=== PATIENT | female | born 1940 | race Caucasian/White ===

== ENCOUNTER 2016-11-11 16:23 | Inpatient (IN) | payer MEDICARE, OTHER ==
--- NOTE | 2016-11-11 17:24 | PHYS DOC ---
Past History Past Medical History: Migraines, Seizure Past Surgical History: No Surgical History Alcohol Use: Occasionally Additional Alcohol Information: Pt states she has a nightly gin and tonic Drug Use: None Adult General Chief Complaint Chief Complaint: SEIZURE HPI HPI Impression is a pleasant 76-year-old female with a history of seizures that are described as tonic-clonic occur once every 12-18 months. She's been seen extensively by a neurologist in the past although she is not on any medication to prevent her from having a seizure today after getting her current and a sitting position she developed a prodrome of seizure is coming on she sat down she began to have a generalized tonic-clonic seizure. It was witnessed by family who are at the bedside to explain her history. This is just seizure lasted approximately 60 seconds patient was very confused. She did not have any bowel or bladder incontinence, she did suffer from small injuries to her tongue from biting. Patient did not have any vomiting, diarrhea, chest pain, and often before the event. Full upon arrival to the emergency department. There is no reported history of fever, chills, trauma before the event. This history was provided by EMS and the family at bedside. Patient did not sustain any injury upon the seizure as family helped her to the floor when she had the event. Dr. Sahu neurologist Review of Systems Review of Systems Constitutional: Denies fever or chills [] Eyes: Denies change in visual acuity, redness, or eye pain [] HENT: Denies nasal congestion or sore throat [] Respiratory: Denies cough or shortness of breath [] Cardiovascular: No additional information not addressed in HPI [] GI: Denies abdominal pain, nausea, vomiting, bloody stools or diarrhea [] : Denies dysuria or hematuria [] Musculoskeletal: Denies back pain or joint pain [] Integument: Denies rash or skin lesions [] Neurologic: Denies headache, focal weakness or sensory changes patient complains primary of fatigue at this time. Endocrine: Denies polyuria or polydipsia [] Current Medications Current Medications Current Medications Medications (Trade) Dose Ordered Sig/Charlee Start Time Stop Time Status Last Admin Dose Admin Lorazepam (Ativan) 2 mg 1X ONCE 11/11/16 17:25 11/11/16 17:26 Allergies Allergies Allergies Coded Allergies Type Severity Reaction Last Updated Verified No Known Drug Allergies 10/1/17 No Physical Exam Physical Exam Vital signs reported on the chart within normal limits. Constitutional: Well developed, well nourished, no acute distress, non-toxic appearance. [] HENT: Normocephalic, atraumatic, bilateral external ears normal, oropharynx moist, patient has slight redness to the lateral aspects of the tongue no obvious laceration that needs repair. No oral exudates, nose normal. [] Eyes: PERRLA, EOMI, conjunctiva normal, no discharge. [] Neck: Normal range of motion, no tenderness, supple, no stridor. [] Cardiovascular:Heart rate regular rhythm, no murmur [] Lungs & Thorax: Bilateral breath sounds clear to auscultation [] Abdomen: Bowel sounds normal, soft, no tenderness, no masses, no pulsatile masses. [] Skin: Warm, dry, no erythema, no rash. [] Extremities: No tenderness, no cyanosis, no clubbing, ROM intact, no edema. [] Neurologic: Alert and oriented X 3, normal motor function, normal sensory function, no focal deficits noted. [] Psychologic: Other than being fatigued patient has normal judgment normal mood. Current Patient Data Vital Signs Vital Signs Date Time Temp Pulse Resp B/P (MAP) Pulse Ox O2 Delivery O2 Flow Rate FiO2 11/11/16 16:23 98.6 90 16 97 Room Air EKG EKG EKG timed 5:34 PM read by me 11/11/2016 demonstrates heart rate of 78. QRS normal sinus rhythm AK interval 196 which is normal, QRS which is normal at 72 QTC which is normal for 25. This is a normal EKG.[] Radiology/Procedures Radiology/Procedures [address] [address] IMAGING REPORT Signed PATIENT: ROSETTA VENTURA ACCOUNT: [id number] : 1940 LOCATION: ER AGE: 76 SEX: F EXAM STATUS: REG ER ORD. PHYSICIAN: ANAHY MATA MD REASON: seizure PROCEDURE: CT HEAD WO CONTRAST CT Head W/O Contrast: History: CT Head for seizure, pt has history of seizures Comparison: none Axial images were obtained without contrast. There is moderate diffuse atrophy. There is no mass effect, extraaxial fluid collections or hydrocephalus. There is no focal loss of pang-white matter distinction to suggest acute ischemia, i.e. stroke. Impression: No acute findings. RS Compliance Statement: One or more of the following individualized dose reduction techniques were utilized for this examination: 1. Automated exposure control 2. Adjustment of the mA and/or kV according to patient size 3. Use of iterative reconstruction technique Electronically signed by: Александр العراقي III, MD (11/11/2016 6:37 PM) [place] [id number] DICTATED AND SIGNED BY: АЛЕКСАНДР العراقي III, MD DATE: 11/11/16 6633 CC: ANAHY MATA MD; SUNDAY WEINBERG MD; RISHI PAREKH MD ~ Course & Med Decision Making Course & Med Decision Making Pertinent Labs and Imaging studies reviewed. (See chart for details) My seizure differential. Acute ischemic or hemorrhagic stroke, particularly lobar hemorrhage subdural hematoma Subarachnoid hemorrhage subarachnoid hemorrhage Traumatic brain injury Hypoxic-ischemic injury Brain abscess Meningitis or encephalitis Acute symptomatic seizures may also be caused by an acute medical illness, metabolic disturbance, substance ingestion or withdrawal, and medication exposure Hypoglycemia Hyperglycemia Nonketotic hyperglycemia Hyponatremia Hypocalcemia Hypomagnesemia Uremia secondary to renal failure Hyperthyroidism Acute intermittent porphyria (AIP) Drug intoxication, poisoning, and overdose `` Cocaine, amphetamines, and other illicit substances may cause seizures after acute intoxication. Prescribed medications that may lower the seizure threshold or cause seizures in overdose are listed in the table Cerebrovascular disease Primary or metastatic brain tumors Vascular malformations Prior central nervous system infection, such as neurocysticercosis Head injury (see "Post-traumatic seizures and epilepsy") Neurodegenerative dementia, including Alzheimer disease DIFFERENTIAL DIAGNOSIS Seizure is primarily a clinical diagnosis, and accurate diagnosis requires differentiating seizure from other common clinical events that can mimic seizure. In adults, the primary conditions to consider in patients presenting with transient or paroxysmal neurologic events Syncope Transient ischemic attack (particularly in older adults) Migraine Panic attack and anxiety Psychogenic nonepileptic seizure Transient global amnesia (rare before the age of 50 years) Narcolepsy with cataplexy Paroxysmal movement disorders Considered upon arrival Software Test And Validation Engineer note: Neurology on-call doctor Dr. Vaughan Software Test And Validation Engineer called at of the service call service at 5:24 PM Consult called back at called back at 5:26 PM Discussed the case I presented and they agreed with treatment options and plan. I will discuss both options with the family. Will be admission to the hospital for an EEG as an inpatient and he will see her tomorrow. Oral can start her on something empirically like Keppra and schedule an EEG as an outpatient. []Patient turned over to oncoming physician Dr. Cortez Panchal pending CT scan and laboratory work to ensure no other cause for seizures as pending. I assumed care from Dr. Mata. CT head was pending at this time addition to labs. Her labs and CT head have returned as no acute process going on. Patient be admitted to Dr. Yates. I spoke with Dr. Yates, and shared patient's history and exam findings and lab findings. Interim orders written neurology has been consult. She is agreeable to being admitted and is updated on the results. Fidelina Petersen Disclaimer Olimpiaon Disclaimer This chart was dictated in whole or in part using Voice Recognition software in a busy, high-work load, and often noisy Emergency Department environment. It may contain unintended and wholly unrecognized errors or omissions. Departure Departure: Referrals: RISHI PAREKH MD (PCP) ANAHY MATA MD Nov 11, 2016 17:24 SUNDAY WENIBERG MD Nov 11, 2016 22:03
[2016-11-11] MEDS ORDERED: LORazepam 2 MG/ML VIAL IV ONE (17:25)
--- NOTE | 2016-11-11 17:41 | EKG ---
[address] [address] Test Date: 2016-11-11 Test Time: 17:34:44 Pat Name: ROSETTA VENTURA Department: Room: Gender: F Rn Heart: : 1940 Requested By: ANAHY MATA Order Number: [id number] Reading MD: Measurements Intervals Homer Rate: 78 P: 47 CO: 196 QRS: 38 QRSD: 72 T: 58 QT: 370 QTc: 425 Interpretive Statements SINUS RHYTHM OTHERWISE NORMAL ECG RI6.01 No previous ECG available for comparison
[2016-11-11 18:00] LABS: BASO % 0 % (0-3); EOS # 0.2 x10^3/uL (0.0-0.7); EOS % 2 % (0-3); HEMATOCRIT 41.7 % (36.0-47.0); HEMOGLOBIN 14.4 g/dL (12.0-15.5); LYMPH # 1.2 x10^3/uL (1.0-4.8); LYMPH % 16 % (24-48); MEAN CORPUSCULAR HEMOGLOBIN 31 pg (25-35); MEAN CORPUSCULAR HGB CONC 35 g/dL (31-37); MEAN CORPUSCULAR VOLUME 89 fL (79-100); MONO # 0.4 x10^3/uL (0.0-1.1); MONO % 5 % (0-9); NEUT # 5.8 x10^3uL (1.8-7.7); NEUT % 77 % (31-73); PLATELET COUNT 212 x10^3/uL (140-400); RED BLOOD COUNT 4.69 x10^6/uL (3.50-5.40); RED CELL DISTRIBUTION WIDTH 13.5 % (11.5-14.5); WHITE BLOOD COUNT 7.6 x10^3/uL (4.0-11.0)
[2016-11-11 18:11] LABS: CALCIUM 8.9 mg/dL (8.5-10.1); GFR 54.1; POTASSIUM 3.8 mmol/L (3.5-5.1)
--- NOTE | 2016-11-11 18:40 | RAD ---
CT Head W/O Contrast: History: CT Head for seizure, pt has history of seizures Comparison: none Axial images were obtained without contrast. There is moderate diffuse atrophy. There is no mass effect, extraaxial fluid collections or hydrocephalus. There is no focal loss of pang-white matter distinction to suggest acute ischemia, i.e. stroke. Impression: No acute findings. RS Compliance Statement: One or more of the following individualized dose reduction techniques were utilized for this examination: 1. Automated exposure control 2. Adjustment of the mA and/or kV according to patient size 3. Use of iterative reconstruction technique Electronically signed by: Steve Astudillo III, MD (11/11/2016 6:37 PM) [facility]
[2016-11-11 20:57] VITALS: BP 114/48
[2016-11-11] MEDS ORDERED: ONDANSETRON PF 4 MG/2 ML VIAL. IV PRN (21:00)
[2016-11-11] MEDS ORDERED: Influenza vaccine per PROTOCOL. MC PRN (21:45)
[2016-11-11] MEDS ORDERED: MELA3TAB2 PO (22:21)
[2016-11-11] MEDS ORDERED: CHOL100013 PO (22:21)
[2016-11-11] MEDS ORDERED: PROP80CA3 PO (22:21)
[2016-11-11] MEDS ORDERED: AMIT10TA PO (22:21)
[2016-11-11] MEDS ORDERED: SIMV40TA3 PO (22:21)
[2016-11-11 23:00] VITALS: BP 100/47
[2016-11-12 05:00] VITALS: BP 136/59
[2016-11-12 05:40] LABS: BARBITURATES NEG (NEG); BENZODIAZEPINES NEG (NEG); CANNABINOIDS NEG (NEG); COCAINE NEG (NEG); METHADONE NEG (NEG); OPIATES NEG (NEG); PHENCYCLIDINE NEG (NEG)
[2016-11-12 05:41] LABS: AMPHETAMINE/METHAMPHETAMINE NEG (NEG)
[2016-11-12 06:13] LABS: CALCIUM 8.2 mg/dL (8.5-10.1); CREATININE 0.8 mg/dL (0.6-1.0); GFR 69.9; POTASSIUM 3.7 mmol/L (3.5-5.1)
[2016-11-12 06:20] LABS: BASO % 0 % (0-3); EOS # 0.2 x10^3/uL (0.0-0.7); EOS % 3 % (0-3); HEMATOCRIT 37.1 % (36.0-47.0); HEMOGLOBIN 12.6 g/dL (12.0-15.5); LYMPH # 1.8 x10^3/uL (1.0-4.8); LYMPH % 31 % (24-48); MEAN CORPUSCULAR HEMOGLOBIN 30 pg (25-35); MEAN CORPUSCULAR HGB CONC 34 g/dL (31-37); MEAN CORPUSCULAR VOLUME 90 fL (79-100); MONO # 0.5 x10^3/uL (0.0-1.1); MONO % 8 % (0-9); NEUT # 3.5 x10^3uL (1.8-7.7); NEUT % 58 % (31-73); PLATELET COUNT 178 x10^3/uL (140-400); RED BLOOD COUNT 4.14 x10^6/uL (3.50-5.40); RED CELL DISTRIBUTION WIDTH 13.7 % (11.5-14.5)
[2016-11-12] MEDS ORDERED: ALEN70TA3 PO (08:37)
[2016-11-12] MEDS ORDERED: PROP60TA PO (08:40)
[2016-11-12] MEDS ORDERED: AMIT25TA PO (08:41)
[2016-11-12] MEDS ORDERED: MELA10TA2 PO (08:41)
[2016-11-12] MEDS ORDERED: AMIT10TA PO (08:42)
[2016-11-12] MEDS ORDERED: PROPRANOLOL ER 60 MG CAP.SA.24H. PO SCH (09:00)
[2016-11-12] MEDS ORDERED: AMITRIPTYLINE HCL 10 MG TABLET PO SCH ×2 (09:00→21:00)
[2016-11-12] MEDS ORDERED: ALENDRONATE SODIUM 70 MG TABLET PO SCH (09:00)
[2016-11-12] MEDS ORDERED: FLU VACC QS2017-18 (36MOS+)/PF 0.5 ML SYRINGE. VAX IM ONE (09:00)
[2016-11-12 09:28] VITALS: BP 113/54
[2016-11-12] MEDS ORDERED: MELATONIN 3 MG TABLET PO SCH (09:45)
--- NOTE | 2016-11-12 10:36 | HP ---
ADMIT DATE: 11/11/2016 REASON FOR ADMISSION: Apparent seizure. HISTORY OF PRESENT ILLNESS: This is a 76-year-old female who presented to the Emergency Room after a witnessed tonic-clonic seizure. Apparently, she has had these every 12-18 months. She has seen Dr. Sahu in the past and has only seen him once. She has never been placed on medication. She does suffer significantly from insomnia and prior to having the seizure, she had taken 30 mg of melatonin. This is way outside the recommended dose and it can cause seizures. She had not taken the melatonin regularly prior to taking that dose. The patient denied bowel or bladder incontinence and the seizure lasted approximately 60 seconds. PAST MEDICAL HISTORY: Significant for hypertension, hyperlipidemia, osteoporosis. PAST SURGICAL HISTORY: Cyst removed from her tailbone and tonsillectomy. HABITS: No regular aerobic exercise, but is quite active, does not smoke and has a daily nightly gin and tonic. REVIEW OF SYSTEMS: Weight the same, significant insomnia, got 5 hours sleep night prior to the seizure, problems turning brain off at night. ALLERGIES: None. MEDICATIONS: Propranolol 60 mg daily, amitriptyline 20 mg at bedtime, simvastatin 40 mg at bedtime, melatonin 30 mg at bedtime, Fosamax 70 mg weekly. PHYSICAL EXAMINATION: VITAL SIGNS: Blood pressure 113/54, pulse 75, temperature 97.4, pulse ox 96% on room air. GENERAL: Pleasant 76-year-old in no acute distress. HEENT: Her hearing is normal. Her eyes are clear. Pupils were equal, round, react to light. Extraocular muscles are intact. She has a small growth on the right upper lid. It appears benign. Nose is patent. Throat was clear. Tongue was midline, slight cut from biting her tongue. NECK: Supple, without adenopathy. LUNGS: Clear to auscultation. CARDIOVASCULAR: Regular rhythm and rate with a short systolic murmur. ABDOMEN: Soft, nontender. EXTREMITIES: Without edema. NEUROLOGIC: Cranial nerves were intact. Chief Librarian Work With Blind is good. Motor function good. No tremor noted. LABORATORY DATA: CBC is normal. Chemistry is normal. Drug screen negative. CT of the head negative, but there is moderate diffuse atrophy. ASSESSMENT: 1. Apparent seizure-like activity -- the patient took 30 mg melatonin the day prior to this happening and this could significantly raise her seizure threshold. 2. Daily alcohol intake. 3. Osteoporosis, present on admission. 4. Hypertension, present on admission. 5. Insomnia. May significantly contribute to seizure-like activity. 6. Hyperlipidemia, present on admission. PLAN: Neurologic consult, EEG, discontinue [address] her on 3 mg, which is the recommended dose. LAURA ANNA DO DR: GENEVIEVE/marques JOB#: [id number] / [id number]
[2016-11-12 12:45] VITALS: BP 109/42
[2016-11-12] MEDS ORDERED: SIMVASTATIN 40 MG TABLET. PO SCH (21:00)
[2016-11-12] MEDS ORDERED: MELATONIN 30 MG PO SCH (21:00)
--- NOTE | 2016-11-13 11:43 | DS ---
DATE OF DISCHARGE: 11/12/2016 HOSPITAL COURSE: This is a 76-year-old female who was admitted on 11/11/2016 for an apparent seizure, most likely secondary to a large dose of melatonin of 30 mg. She was seen in consultation by Dr. Vaughan and EEG was done. She had a full history and physical. Please refer to this for further information. She was discharged on 11/12/2016, to follow up with Dr. Vaughan and to not take in excess of 3 mg of melatonin. This was discussed in person with her. LAURA ANNA DO DR: GENEVIEVE/marques JOB#: [id number] / [id number]
== END 2016-11-12 17:40 | disposition home or self-care (01) | DRG 101 ==
LOC: ER 16:23 → ICU 19:30
PROVIDERS: ADMIT Internal Medicine; ATTEND Internal Medicine
DX: G40.409 Other generalized epilepsy and epileptic syndromes, not intractable, without status epilepticus (principal); I10 Essential (primary) hypertension; E78.5 Hyperlipidemia, unspecified; G47.00 Insomnia, unspecified; T50.995A Adverse effect of other drugs, medicaments and biological substances, initial encounter; M81.0 Age-related osteoporosis without current pathological fracture; G43.909 Migraine, unspecified, not intractable, without status migrainosus; Y92.89 Other specified places as the place of occurrence of the external cause; Z90.49 Acquired absence of other specified parts of digestive tract
CPT/HCPCS: 36415; 70450; 80048; 80307; 83735; 84484; 85025; 87641; 93005; 95816; 96374; J2060; 99285-25; G0479

== ENCOUNTER 2018-08-16 09:11 | Emergency (ER) | payer MEDICARE, OTHER ==
[2018-08-16 09:11] VITALS: BP 110/44
[~2018-08-16 09:11] MED LIST: ALEN70TA3 PO; AMIT10TA PO; AMIT25TA PO; CHOL100013 PO; MELA10TA2 PO; MELA3TAB2 PO; PROP60TA PO; PROP80CA3 PO; SIMV40TA3 PO
[2018-08-16] MEDS ORDERED: ASPIRIN 81 MG TAB.CHEW PO ONE (09:15)
[2018-08-16 09:29] LABS: BASO # 0.1 x10^3/uL (0.0-0.2); BASO % 1 % (0-3); EOS # 0.1 x10^3/uL (0.0-0.7); EOS % 1 % (0-3); HEMATOCRIT 41.7 % (36.0-47.0); HEMOGLOBIN 13.5 g/dL (12.0-15.5); LYMPH # 1.5 x10^3/uL (1.0-4.8); LYMPH % 11 % (24-48); MEAN CORPUSCULAR HEMOGLOBIN 30 pg (25-35); MEAN CORPUSCULAR HGB CONC 33 g/dL (31-37); MEAN CORPUSCULAR VOLUME 92 fL (79-100); MONO # 1.1 x10^3/uL (0.0-1.1); MONO % 8 % (0-9); NEUT # 11.2 x10^3uL (1.8-7.7); NEUT % 80 % (31-73); PLATELET COUNT 305 x10^3/uL (140-400); RED BLOOD COUNT 4.55 x10^6/uL (3.50-5.40)
--- NOTE | 2018-08-16 09:35 | PHYS DOC ---
Past History Past Medical History: Migraines, Seizure Past Surgical History: No Surgical History Alcohol Use: Occasionally Drug Use: None Adult General Chief Complaint Chief Complaint: CHEST PAIN HPI HPI 78-year-old female presents with chest pain. The patient was lying in bed around 7:30 AM when the chest pain started without warning. It started at a low level and intensified quickly over a few minutes. It was a 10 out of 10. She had nausea and an episode of vomiting. She also was mildly diaphoretic, but was not short of breath. The pain lasted that way for about an hour and then decreased to an 8 and radiated to her back. It is currently 7 out of 10 but the pain is located in her back on the right side and not in her chest. Patient has no cardiac history. Her last stress test was probably 8 years ago. It was normal at that time. The patient has a history of GERD. She has been having more issues with it over the last few days. She denies fever or chills. She did not take an aspirin at home. Review of Systems Review of Systems Constitutional: Denies fever or chills [] Eyes: Denies change in visual acuity, redness, or eye pain [] HENT: Denies nasal congestion or sore throat [] Respiratory: Denies cough or shortness of breath [] Cardiovascular: No additional information not addressed in HPI [] GI: Epigastric abdominal pain, nausea, vomiting. Denies bloody stools or diarrhea [] : Denies dysuria or hematuria [] Musculoskeletal: right sided mid back pain [] Integument: Denies rash or skin lesions [] Neurologic: Denies headache, focal weakness or sensory changes [] Endocrine: Denies polyuria or polydipsia [] All other systems were reviewed and found to be within normal limits, except as documented in this note. Current Medications Current Medications Current Medications Medications (Trade) Dose Ordered Sig/Charlee Start Time Stop Time Status Last Admin Dose Admin Aspirin (Children'S Aspirin) 324 mg 1X ONCE 08/16/18 09:15 08/16/18 09:26 DC 08/16/18 09:24 324 MG Allergies Allergies Allergies Coded Allergies Type Severity Reaction Last Updated Verified No Known Drug Allergies 11/11/16 No Physical Exam Physical Exam Constitutional: Well developed, well nourished, no acute distress, non-toxic appearance. [] HENT: Normocephalic, atraumatic, bilateral external ears normal, oropharynx moist, no oral exudates, nose normal. [] Eyes: PERRLA, EOMI, conjunctiva normal, no discharge. [] Neck: Normal range of motion, no tenderness, supple, no stridor. [] Cardiovascular:Heart rate regular rhythm, no murmur [] Lungs & Thorax: Bilateral breath sounds clear to auscultation [] Abdomen: Bowel sounds normal, soft, mild epigastric tenderness, no masses, no pulsatile masses. [] Skin: Warm, dry, no erythema, no rash. [] Back: No tenderness, no CVA tenderness. [] Extremities: No tenderness, no cyanosis, no clubbing, ROM intact, no edema. [] Neurologic: Alert and oriented X 3, normal motor function, normal sensory function, no focal deficits noted. [] Psychologic: Affect normal, judgement normal, mood normal. [] Current Patient Data Vital Signs Vital Signs Date Time Temp Pulse Resp B/P (MAP) Pulse Ox O2 Delivery O2 Flow Rate FiO2 08/16/18 09:11 97.6 93 20 110/44 (66) 97 Room Air Lab Results Laboratory Tests Test 08/16/18 09:18 White Blood Count 14.0 x10^3/uL (4.0-11.0) H Red Blood Count 4.55 x10^6/uL (3.50-5.40) Hemoglobin 13.5 g/dL (12.0-15.5) Hematocrit 41.7 % (36.0-47.0) Mean Corpuscular Volume 92 fL (79-100) Mean Corpuscular Hemoglobin 30 pg (25-35) Mean Corpuscular Hemoglobin Concent 33 g/dL (31-37) Red Cell Distribution Width 13.0 % (11.5-14.5) Platelet Count 305 x10^3/uL (140-400) Neutrophils (%) (Auto) 80 % (31-73) H Lymphocytes (%) (Auto) 11 % (24-48) L Monocytes (%) (Auto) 8 % (0-9) Eosinophils (%) (Auto) 1 % (0-3) Basophils (%) (Auto) 1 % (0-3) Neutrophils # (Auto) 11.2 x10^3uL (1.8-7.7) H Lymphocytes # (Auto) 1.5 x10^3/uL (1.0-4.8) Monocytes # (Auto) 1.1 x10^3/uL (0.0-1.1) Eosinophils # (Auto) 0.1 x10^3/uL (0.0-0.7) Basophils # (Auto) 0.1 x10^3/uL (0.0-0.2) EKG EKG Sinus rhythm, rate 89, normal axis, no ST elevations or depressions.[] Radiology/Procedures Radiology/Procedures [] Impressions: Single view chest dated 08/16/2018: Comparison made to 01/13/2010 Clinical Indication: Chest pain. Findings: Single upright portable exam of the chest was performed. Heart and mediastinal contours within normal limits. Lungs are somewhat hyperinflated but otherwise clear. No consolidation or pleural effusion. No pneumothorax. Impression:: No acute radiographic abnormality. Electronically signed by: Mars Darling MD (08/16/2018 9:50 AM) [facility] [place]CTATED AND SIGNED BY: MARS DARLING MD DATE: 08/16/18 0950 CC: ODALIS MEDINA DO; RISHI PAREKH MD ~ Course & Med Decision Making Course & Med Decision Making Pertinent Labs and Imaging studies reviewed. (See chart for details) On arrival, the patient was given 324 of aspirin and an EKG was performed. The patient's EKG is unremarkable. Her labs are unremarkable except for slightly elevated white count. Her troponin is negative. Chest x-rays negative for acute findings. Her pain appeared to a more epigastric and she describes it. We will try GI cocktail. The GI cocktail helped the patient's discomfort significantly. She has been unable to urinate for us however. We will perform a bladder scan. The patient had less than 200 mL initially. Gave her some fluids. Unable to urinate. Her urinalysis was positive for leukocyte esterase, but no significant white cells. I do not believe she has urinary tract infection. She is stable for discharge at this time. [] Dragon Disclaimer Dragon Disclaimer This electronic medical record was generated, in whole or in part, using a voice recognition dictation system. Departure Departure: Impression: Primary Impression: Chest pain Additional Impression: GERD (gastroesophageal reflux disease) Disposition: HOME, SELF-CARE Condition: STABLE Referrals: RISHI PAREKH MD (PCP) Patient Instructions: Chest Pain (Nonspecific), [id number], Gastroesophageal Reflux Disease, Adult, [id number] Problem Qualifiers Primary Impression: Chest pain Chest pain type: unspecified Qualified Codes: R07.9 - Chest pain, unspecified Additional Impression: GERD (gastroesophageal reflux disease) Esophagitis presence: without esophagitis Qualified Codes: K21.9 - Gastro- esophageal reflux disease without esophagitis ODALIS MEDINA DO Aug 16, 2018 09:35
[2018-08-16 09:49] LABS: ALBUMIN/GLOBULIN RATIO 1.3 (1.0-1.7); CREATININE 0.9 mg/dL (0.6-1.0); GFR 60.7; POTASSIUM 3.9 mmol/L (3.5-5.1); TOTAL PROTEIN 7.1 g/dL (6.4-8.2)
--- NOTE | 2018-08-16 09:52 | RAD ---
Single view chest dated 08/16/2018: Comparison made to 01/13/2010 Clinical Indication: Chest pain. Findings: Single upright portable exam of the chest was performed. Heart and mediastinal contours within normal limits. Lungs are somewhat hyperinflated but otherwise clear. No consolidation or pleural effusion. No pneumothorax. Impression:: No acute radiographic abnormality. Electronically signed by: Mars Darling MD (08/16/2018 9:50 AM) [facility] [place] [facility] [place]
[2018-08-16] MEDS ORDERED: LIDO:MAALOX 1:1 20 ML SINGLE DOSE. PO ONE (10:00)
[2018-08-16] MEDS ORDERED: IV NORMAL SALINE 1,000ML 1,000 ML IV ONE (11:45)
[2018-08-16 13:12] LABS: BACTERIA,URINE FEW /HPF (0-FEW); BILIRUBIN,URINE NEG (NEG); CLARITY,URINE CLEAR; COLOR,URINE YELLOW; GLUCOSE,URINE NEG (NEG); NITRITE,URINE NEG (NEG); RBC,URINE 0 /HPF (0-2); SQUAMOUS EPITHELIAL CELL,UR OCC /LPF; UROBILINOGEN,URINE 0.2 mg/dL (0.2 mg/dL)
== END 2018-08-16 13:45 | disposition home or self-care (01) ==
LOC: ER 09:11
DX: K21.9 Gastro-esophageal reflux disease without esophagitis (principal); R11.2 Nausea with vomiting, unspecified; G43.909 Migraine, unspecified, not intractable, without status migrainosus
CPT/HCPCS: 36415; 71045; 80053; 81001; 83690; 83880; 84484; 85025; 87086; 93005; 96360; 96361; 99285-25; J7030